=== PATIENT | female | born 1980 | race Caucasian/White ===

== ENCOUNTER 2017-03-02 10:08 | Emergency (ER) | payer OTHER ==
[~2017-03-02] VITALS: Ht 172.7 cm; Wt 60.9 kg
[~2017-03-02 10:08] MED LIST: DOXYCYCLINE 10100 MG PO; MAXZIDE-25MG TA1 TAB PO; MOTRIN 800800 MG/TAB PO; PERCOCET 325 MG1 TA2 PO; PRENATAL1 TA7 PO
[2017-03-02 10:20] VITALS: TEMP 98.3
[2017-03-02] MEDS ORDERED: FLEXERIL 1010 MG/TAB PO (12:38)
[2017-03-02] MEDS ORDERED: NORCO 325 MG-51 TAB PO (12:38)
[2017-03-02 12:58] VITALS: BP 109/67; PULSE 50
== END 2017-03-02 12:59 | disposition home or self-care (01) ==
LOC: COL.ER 10:08
DX: Z98.890 Other specified postprocedural states (principal); X50.0XXA Overexertion from strenuous movement or load, initial encounter
CPT/HCPCS: J1885; J2360